=== PATIENT | female | born 1995 | race Caucasian/White ===

== ENCOUNTER → 2021-02-22 | Outpatient (CLI) | payer BC | LOC: COL.RAD 02-19 09:45 | DX: K76.0 Fatty (change of) liver, not elsewhere classified (principal) ==

== ENCOUNTER → 2021-07-12 | Outpatient (CLI) | payer BC | LOC: COL.RAD 07:08 | DX: N91.2 Amenorrhea, unspecified (principal); N95.8 Other specified menopausal and perimenopausal disorders; N94.6 Dysmenorrhea, unspecified ==

== ENCOUNTER → 2022-01-31 | Outpatient (CLI) | payer BC | LOC: COL.LAB 15:50 | DX: O28.8 Other abnormal findings on antenatal screening of mother (principal); Z67.90 Unspecified blood type, Rh positive; Z3A.00 Weeks of gestation of pregnancy not specified ==

== ENCOUNTER 2022-12-24 21:13 | Emergency (ER) | payer OTHER ==
[~2022-12-24] VITALS: Ht 165.1 cm; Wt 68.2 kg
[~2022-12-24 21:13] MED LIST: IBU800 M1 PO; MACROBID 1100 MG/CAP PO; NORCO 325 MG-51 TAB PO; PRENATAL; PROGESTERO50 MG/1 ML IM; PROMETRIUM100 MG PO; ZOFRAN ODT4 MG PO
[2022-12-24 21:21] VITALS: TEMP 98.2
[2022-12-24 21:47] LABS: BASO # 0.1 K/mm3 (0.0-0.2); BASO % 0.6 % (0.0-2.0); EOS # 0.2 K/mm3 (0.0-0.7); GRAN % 44.1 % (42.2-75.2); HEMATOCRIT 42.3 % (37.0-47.0); HEMOGLOBIN 14.8 g/dl (12.5-16.0); LYMPH # 3.9 K/mm3 (1.2-3.4); LYMPH % 42.7 % (20.0-51.0); MEAN CELL VOLUME 88 fl (80.0-100.0); MEAN CORPUSCULAR HEMOGLOBIN 31 pg (27-31); MEAN CORPUSCULAR HGB CONC 35 g/dl (33.0-37.0); MEAN PLATELET VOLUME 10.1 fl (7.4-10.4); MONO # 0.9 K/mm3 (0.1-0.6); MONO % 10.4 % (1.7-9.3); PLATELET COUNT 234 K/mm3 (130-400); RED BLOOD COUNT 4.82 M/mm3 (4.10-5.30); REDCELL DISTRIBUTION WIDTH-CV 11.9 % (11.5-14.5)
[2022-12-24 22:08] LABS: ALANINE AMINOTRANSFERASE 23 U/L (0-55); ALBUMIN 4.5 gm/dL (3.5-5.0); ALKALINE PHOSPHATASE 83 U/L (40-150); ANION GAP 12 mmol/L (7-16); AST,SGOT 19 U/L (5-34); BILIRUBIN,TOTAL 0.5 mg/dL (0.2-1.2); BLOOD UREA NITROGEN 13 mg/dL (7-19); CALCIUM 9.8 mg/dL (8.4-10.2); CARBON DIOXIDE 22 mmol/L (22-29); CHLORIDE 106 mmol/L (98-107); CREATININE, serum 0.96 mg/dL (0.57-1.11); GLUCOSE 115 mg/dL (70-99); POTASSIUM 3.6 mmol/L (3.5-4.5); SODIUM 140 mmol/L (136-145); TOTAL PROTEIN 7.6 gm/dL (6.2-8.1)
[2022-12-24 22:15] LABS: TROPONIN-I < 0.010 ng/mL (0.00-0.033)
[2022-12-24] MEDS ORDERED: PEPCID 20MG TAB20 MG PO (23:27)
[2022-12-24 23:34] VITALS: BP 110/68; PULSE 75
== END 2022-12-24 23:43 | disposition home or self-care (01) ==
LOC: COL.ER 21:13
PROVIDERS: Emergency Medicine
DX: R07.2 Precordial pain (principal)